=== PATIENT | male | born 1955 | race Caucasian/White ===

== ENCOUNTER 2017-08-18 17:36 | Inpatient (IN) | payer OTHER ==
[~2017-08-18] VITALS: Ht 193 cm; Wt 126.5 kg
[~2017-08-18 17:36] MED LIST: AMLO5TAB4 PO; BUPR1FIL SL; CLON-364 PO; DULO60CA7 PO; IBUP-1223 PO; PANT40TA5 PO; PREG100C PO; PREG25CA PO; RANI300T PO; SIMV20TA3 PO; TAMS-11 PO; TRAZ50TA18 PO
[2017-08-18] MEDS ORDERED: ONDANSETRON ODT 4 MG PO ONE (18:30)
[2017-08-18] MEDS ORDERED: SODIUM CHLORIDE FLUSH 10ML SYR IVF ONE (18:30)
[2017-08-18] MEDS ORDERED: KETOROLAC 30 MG/1 ML IVPush ONE (18:30)
[2017-08-18] MEDS ORDERED: MORPHINE SULFATE 4 MG/ML, 1ML IVPush PRN (18:30)
[2017-08-18] MEDS ORDERED: ONDANSETRON 2MG/ML, 2ML IVPush ONE (20:00)
[2017-08-18] MEDS ORDERED: DIAZEPAM 5 MG TABLET PO ONE (20:00)
[2017-08-18] MEDS ORDERED: HYDROmorphone 2 MG/ML, 1ML ONE ×3 (20:24→21:11)
[2017-08-18] MEDS ORDERED: ONDANSETRON 2MG/ML, 2ML ONE (20:24)
[2017-08-18] MEDS ORDERED: KETOROLAC 30 MG/1 ML ONE (20:24)
[2017-08-18] MEDS ORDERED: DIAZEPAM 5 MG TABLET ONE (20:24)
[2017-08-18] MEDS: HYDROmorphone 1 MG/ML, 1ML IVPush PRN ×2 (20:35→21:10)
[2017-08-19] MEDS ORDERED: IBUPROFEN 800 MG TABLET PO PRN (01:00)
[2017-08-19] MEDS ORDERED: HYDROmorphone 2 MG/ML, 1ML ONE ×3 (01:14→06:03)
[2017-08-19] MEDS: HYDROmorphone 1 MG/ML, 1ML IV PRN ×3 (01:23→06:06)
[2017-08-19] MEDS: LIDODERM 5% PATCH TD SCH (01:23)
[2017-08-19 02:00] VITALS: BP 113/69
[2017-08-19 07:18] VITALS: BP 111/67
[2017-08-19] MEDS: PANTOPROZOLE 40MG TABLET PO SCH (08:00)
[2017-08-19] MEDS: TAMSULOSIN 0.4 MG CAP.ER.24H PO SCH (08:00)
[2017-08-19] MEDS: DULOXETINE 30 MG CAPSULE.DR PO SCH (08:01)
[2017-08-19] MEDS: PREGABALIN 100 MG CAPSULE PO PRN ×2 (08:28→17:59)
[2017-08-19] MEDS: BUPRENORPHINE HCL SL SCH ×2 (09:00→21:00)
[2017-08-19] MEDS: [UNRECOGNIZED DRUG - OTHER] SL SCH ×2 (09:00→21:00)
[2017-08-19] MEDS: NALOXONE HCL SL SCH ×2 (09:00→21:00)
[2017-08-19] MEDS ORDERED: FAMOTIDINE 40 MG TABLET PO SCH (09:00)
[2017-08-19] MEDS: DEXAMETHASONE 4 MG/ML, 1ML IVPush SCH ×3 (10:34→21:41)
[2017-08-19 12:27] VITALS: BP 115/72
[2017-08-19 19:03] VITALS: BP 117/66
[2017-08-19] MEDS ORDERED: SIMVASTATIN 20 MG TABLET PO SCH (21:00)
[2017-08-19] MEDS ORDERED: TRAZODONE 50MG TABLET PO SCH (21:00)
[2017-08-20] MEDS: LIDODERM 5% PATCH TD SCH (01:00)
[2017-08-20 01:54] VITALS: BP 127/76
[2017-08-20 05:32] LABS: BASOPHILS # (AUTO) 0.01 x10^3/uL (0-0.1); BASOPHILS % (AUTO) 0 % (0-1); EOSINOPHILS % (AUTO) 0 % (1-7); LYMPHOCYTES # (AUTO) 0.72 x10^3/uL (1-3.4); LYMPHOCYTES % (AUTO) 17 % (22-44); MD NO; MEAN CORPUSCULAR HGB CONC 33.9 g/dL (33.2-36.2); MEAN CORPUSCULAR VOLUME 94.5 fL (81-97); MEAN PLATELET VOLUME 8.8 fL (7.4-10.4); MONOCYTES # (AUTO) 0.21 x10^3/uL (0.2-0.8); MONOCYTES % (AUTO) 5 % (2-9); NEUTROPHILS # (AUTO) 3.42 x10^3/uL (1.8-6.8); NEUTROPHILS % (AUTO) 78 % (42-75); PLATELET COUNT 267 x10^3/uL (130-400)
[2017-08-20 05:38] LABS: ANION GAP 9 mmol/L (5-15); CHLORIDE 111 mmol/L (98-107)
[2017-08-20 08:00] VITALS: BP 106/69
[2017-08-20] MEDS: NALOXONE HCL SL SCH (09:00)
[2017-08-20] MEDS: TAMSULOSIN 0.4 MG CAP.ER.24H PO SCH (09:00)
[2017-08-20] MEDS: [UNRECOGNIZED DRUG - OTHER] SL SCH (09:00)
[2017-08-20] MEDS: BUPRENORPHINE HCL SL SCH (09:00)
[2017-08-20] MEDS: PANTOPROZOLE 40MG TABLET PO SCH (10:21)
[2017-08-20] MEDS: DULOXETINE 30 MG CAPSULE.DR PO SCH (10:21)
[2017-08-20] MEDS: PREGABALIN 100 MG CAPSULE PO PRN (11:09)
[2017-08-20] MEDS ORDERED: METH4TAB2 PO ×2 (12:05→12:09)
[2017-08-20] MEDS ORDERED: FLU VACC QS2017-18 (36MOS+) UP/PF 0.5 ML IM-VACC ONE (13:00)
[2017-08-20] MEDS ORDERED: PNEUMOCOCCAL 23 VACCINE IM-VACC ONE (13:00)
== END 2017-08-20 14:00 | disposition home or self-care (01) | DRG 552 ==
LOC: ED 20:58 → EDIP 21:00 → 4WST 23:05
PROVIDERS: ADMIT Internal Medicine; ATTEND Internal Medicine
DX: M51.16 Intervertebral disc disorders with radiculopathy, lumbar region (principal); M48.54XA Collapsed vertebra, not elsewhere classified, thoracic region, initial encounter for fracture; E66.9 Obesity, unspecified; G89.29 Other chronic pain; I10 Essential (primary) hypertension; M48.061 Spinal stenosis, lumbar region without neurogenic claudication; Z68.33 Body mass index [BMI] 33.0-33.9, adult; Z88.8 Allergy status to other drugs, medicaments and biological substances; Z23 Encounter for immunization
CPT/HCPCS: 36415; 72110; 72131; 80048; 85025; 90686; 90732; 96374; 96375; 96376; J1100; J1170; J1885; J2405

== ENCOUNTER → 2017-11-10 | Outpatient (CLI) | payer OTHER ==
[~2017-11-10] MED LIST changes: +METH4TAB2 PO
== END | disposition home or self-care (01) ==
LOC: RAD 13:32
PROVIDERS: ATTEND Family Medicine
DX: M17.11 Unilateral primary osteoarthritis, right knee (principal)

== ENCOUNTER → 2018-01-17 | Outpatient (CLI) | payer OTHER | END | disposition home or self-care (01) | LOC: CFH 10:27 | PROVIDERS: ATTEND Family Medicine | DX: K76.0 Fatty (change of) liver, not elsewhere classified (principal) | CPT/HCPCS: 76700 ==

== ENCOUNTER 2018-02-28 15:06 | Emergency (ER) | payer OTHER ==
[~2018-02-28] VITALS: Ht 193 cm; Wt 125.0 kg
[2018-02-28] MEDS ORDERED: SODIUM CHLORIDE FLUSH 10ML SYR IVF ONE (15:30)
[2018-02-28] MEDS ORDERED: KETOROLAC 30 MG/1 ML IVPush ONE ×2 (15:30→20:00)
[2018-02-28 15:54] LABS: BASOPHILS # (AUTO) 0.04 x10^3/uL (0-0.1); BASOPHILS % (AUTO) 1 % (0-1); EOSINOPHILS # (AUTO) 0.18 x10^3/uL (0-0.4); EOSINOPHILS % (AUTO) 3 % (1-7); LYMPHOCYTES % (AUTO) 30 % (22-44); MD NO; MEAN CORPUSCULAR HEMOGLOBIN 31.9 pg (27.5-34.5); MEAN CORPUSCULAR HGB CONC 34.2 g/dL (33.2-36.2); MEAN CORPUSCULAR VOLUME 93.3 fL (81-97); MEAN PLATELET VOLUME 8.3 fL (7.4-10.4); MONOCYTES % (AUTO) 9 % (2-9); NEUTROPHILS # (AUTO) 4.03 x10^3/uL (1.8-6.8); NEUTROPHILS % (AUTO) 58 % (42-75); PLATELET COUNT 266 x10^3/uL (130-400); RED BLOOD COUNT 4.67 x10^6/uL (4.38-5.82)
[2018-02-28] MEDS ORDERED: HYDROmorphone 2 MG/ML, 1ML ONE ×3 (15:55→18:18)
[2018-02-28] MEDS ORDERED: KETOROLAC 30 MG/1 ML ONE (15:56)
[2018-02-28 15:59] LABS: ALANINE AMINOTRANSFERASE 37 U/L (12-78); ALBUMIN 4.2 g/dL (3.4-5.0); ANION GAP 10 mmol/L (5-15); CALCIUM 9.8 mg/dL (8.5-10.1); CHLORIDE 108 mmol/L (98-107); CREATININE 1.28 mg/dL (0.7-1.3)
[2018-02-28 16:01] LABS: ALKALINE PHOSPHATASE 94 U/L (45-117); BILIRUBIN,TOTAL 0.6 mg/dL (0.2-1.0); TOTAL PROTEIN 8.1 g/dL (6.4-8.2)
[2018-02-28] MEDS: HYDROmorphone 2 MG/ML, 1ML IVPush PRN ×2 (16:02→16:30)
[2018-02-28 16:15] LABS: MICROSCOPIC NOT IND
[2018-02-28 16:18] LABS: CULTURE INDICATED? NO
[2018-02-28 17:28] LABS: HCT (SEDRATE) 43.6 % (39.2-51.8)
[2018-02-28] MEDS ORDERED: OMNIPAQUE 350 MG/ML, 100ML BOTTLE ONE (17:54)
[2018-02-28] MEDS ORDERED: HYDROmorphone 1 MG/ML, 1ML IV ONE ×2 (19:00→20:00)
[2018-02-28 19:16] VITALS: BP 151/82
== END 2018-02-28 21:24 | disposition home or self-care (01) ==
LOC: ED 20:59
DX: M48.56XA Collapsed vertebra, not elsewhere classified, lumbar region, initial encounter for fracture (principal); M48.54XA Collapsed vertebra, not elsewhere classified, thoracic region, initial encounter for fracture; I10 Essential (primary) hypertension; G89.29 Other chronic pain; X58.XXXA Exposure to other specified factors, initial encounter; Y93.89 Activity, other specified; Y92.89 Other specified places as the place of occurrence of the external cause; Y99.8 Other external cause status
CPT/HCPCS: 36415; 72129; 72132; 80053; 81003; 83690; 85025; 85651; 86140; 96374; 96375; 96376; 99285; J1170; J1885; Q9967

== ENCOUNTER 2018-03-06 12:58 | Inpatient (IN) | payer OTHER ==
[~2018-03-06] VITALS: Ht 193 cm; Wt 144.3 kg
[~2018-03-06 12:58] MED LIST changes: -CLON-364 PO; +CLON0.5T11 PO; +TRAZ-136 PO; -TRAZ50TA18 PO
[2018-03-06] MEDS ORDERED: ACETAMINOPHEN 500 MG TABLET PO ONE (13:30)
[2018-03-06] MEDS ORDERED: ASPIRIN 81 MG TABLET CHEW PO ONE (13:30)
[2018-03-06] MEDS ORDERED: ASPIRIN 81 MG TABLET CHEW ONE (13:38)
[2018-03-06] MEDS ORDERED: ACETAMINOPHEN 500 MG TABLET ONE (13:38)
[2018-03-06 14:03] LABS: ALANINE AMINOTRANSFERASE 29 U/L (12-78); ANION GAP 7 mmol/L (5-15); CALCIUM 9.1 mg/dL (8.5-10.1); CHLORIDE 105 mmol/L (98-107); CREATININE 1.52 mg/dL (0.7-1.3)
[2018-03-06 14:07] LABS: ALKALINE PHOSPHATASE 87 U/L (45-117); BILIRUBIN,TOTAL 0.9 mg/dL (0.2-1.0); TOTAL PROTEIN 7.9 g/dL (6.4-8.2); TROPONIN I < 0.015 ng/mL (0.000-0.045)
[2018-03-06 14:08] LABS: INTERNATIONAL NORMALIZED RATIO 0.99 (0.93-1.1); PROTHROMBIN TIME 10.3 Seconds (9.6-11.5)
[2018-03-06 14:16] LABS: MEAN CORPUSCULAR HEMOGLOBIN 32.4 pg (27.5-34.5); MEAN CORPUSCULAR HGB CONC 34.8 g/dL (33.2-36.2); MEAN CORPUSCULAR VOLUME 93.2 fL (81-97); MEAN PLATELET VOLUME 7.9 fL (7.4-10.4); PLATELET COUNT 238 x10^3/uL (130-400); RED BLOOD COUNT 4.71 x10^6/uL (4.38-5.82); RED CELL DISTRIBUTION WIDTH 14.2 % (9.4-14.8)
[2018-03-06 14:19] LABS: BASOPHILS # (AUTO) 0.02 x10^3/uL (0-0.1); BASOPHILS % (AUTO) 0 % (0-1); EOSINOPHILS # (AUTO) 0.01 x10^3/uL (0-0.4); EOSINOPHILS % (AUTO) 0 % (1-7); LYMPHOCYTES # (AUTO) 0.38 x10^3/uL (1-3.4); LYMPHOCYTES % (AUTO) 4 % (22-44); MD SCAN; MONOCYTES % (AUTO) 3 % (2-9); NEUTROPHILS # (AUTO) 8.21 x10^3/uL (1.8-6.8); NEUTROPHILS % (AUTO) 92 % (42-75)
[2018-03-06] MEDS ORDERED: OMNIPAQUE 350 MG/ML, 150 ML BOTTLE ONE (14:36)
[2018-03-06] MEDS ORDERED: CEFTRIAXONE 1,000 MG in SODIUM CHLORIDE 0.9% 50 ML IVPB ONE (15:00)
[2018-03-06] MEDS ORDERED: AZITHROMYCIN 500 MG in SODIUM CHLORIDE 0.9% 250 ML IVPB ONE (15:00)
[2018-03-06] MEDS ORDERED: CEFTRIAXONE PMX 1GM/50ML 50 ML ONE (15:03)
[2018-03-06] MEDS ORDERED: SODIUM CHLORIDE 0.9% 1,000ML IVBOLUS ONE ×2 (15:30→16:00)
[2018-03-06] MEDS ORDERED: KETOROLAC 30 MG/1 ML ONE (15:55)
[2018-03-06] MEDS ORDERED: KETOROLAC 30 MG/1 ML IVPush ONE (16:00)
[2018-03-06] MEDS ORDERED: morphine IT (16:17)
[2018-03-06] MEDS ORDERED: CLON1000 IT (16:17)
[2018-03-06] MEDS ORDERED: GABA300C10 PO (16:17)
[2018-03-06] MEDS ORDERED: [UNRECOGNIZED DRUG - CODE] IT (16:17)
[2018-03-06] MEDS ORDERED: SODIUM CHLORIDE 0.9% 1,000 ML IV SCH (17:06)
[2018-03-06] MEDS ORDERED: ACETAMINOPHEN 325 MG TABLET PO PRN (17:30)
[2018-03-06] MEDS ORDERED: LABETALOL 5MG/ML, 20ML IVPush PRN (17:30)
[2018-03-06] MEDS ORDERED: IBUPROFEN 800 MG TABLET PO PRN (17:30)
[2018-03-06] MEDS ORDERED: CEFTRIAXONE 1,000 MG IM SCH (18:00)
[2018-03-06] MEDS: HEPARIN 5,000 UNITS/ML, 1ML SQ SCH (18:39)
[2018-03-06 18:40] VITALS: BP 115/79
[2018-03-06] MEDS: DOXYCYCLINE 100 MG in DEXTROSE 5% 250 ML IV SCH (18:42)
[2018-03-06 18:51] LABS: TROPONIN I < 0.015 ng/mL (0.000-0.045)
[2018-03-06 20:06] VITALS: BP 91/52
[2018-03-06] MEDS ORDERED: IBUPROFEN 600 MG TABLET ONE (21:25)
[2018-03-06] MEDS ORDERED: IBUPROFEN 200 MG TABLET ONE (21:25)
[2018-03-06] MEDS: SIMVASTATIN 20 MG TABLET PO SCH (21:42)
[2018-03-06] MEDS: GUAIFENESIN ER 600 MG TABLET PO SCH (21:42)
[2018-03-06 21:56] VITALS: BP 111/70
[2018-03-06 23:13] VITALS: BP 103/65
[2018-03-06] MEDS: TRAZODONE 100MG TABLET PO SCH (23:17)
[2018-03-06 23:38] LABS: TROPONIN I < 0.015 ng/mL (0.000-0.045)
[2018-03-07] VITALS (10 sets, daily range): BP systolic 99–159; BP diastolic 57–83
[2018-03-07] MEDS: HEPARIN 5,000 UNITS/ML, 1ML SQ SCH ×3 (05:15→20:59)
[2018-03-07] MEDS: DOXYCYCLINE 100 MG in DEXTROSE 5% 250 ML IV SCH ×2 (05:15→17:57)
[2018-03-07 05:21] LABS: BASOPHILS # (AUTO) 0.01 x10^3/uL (0-0.1); BASOPHILS % (AUTO) 0 % (0-1); EOSINOPHILS # (AUTO) 0.19 x10^3/uL (0-0.4); EOSINOPHILS % (AUTO) 2 % (1-7); LYMPHOCYTES # (AUTO) 1.65 x10^3/uL (1-3.4); LYMPHOCYTES % (AUTO) 14 % (22-44); MD NO; MEAN CORPUSCULAR HEMOGLOBIN 32.5 pg (27.5-34.5); MEAN CORPUSCULAR HGB CONC 34.4 g/dL (33.2-36.2); MEAN CORPUSCULAR VOLUME 94.4 fL (81-97); MEAN PLATELET VOLUME 7.9 fL (7.4-10.4); MONOCYTES # (AUTO) 0.63 x10^3/uL (0.2-0.8); MONOCYTES % (AUTO) 5 % (2-9); NEUTROPHILS # (AUTO) 9.47 x10^3/uL (1.8-6.8); NEUTROPHILS % (AUTO) 79 % (42-75); PLATELET COUNT 202 x10^3/uL (130-400); RED BLOOD COUNT 3.61 x10^6/uL (4.38-5.82); RED CELL DISTRIBUTION WIDTH 14.4 % (9.4-14.8)
[2018-03-07 05:25] LABS: ANION GAP 4 mmol/L (5-15); CALCIUM 7.8 mg/dL (8.5-10.1); CHLORIDE 111 mmol/L (98-107); CREATININE 0.98 mg/dL (0.7-1.3)
[2018-03-07] MEDS: GABAPENTIN 300 MG CAPSULE PO SCH ×3 (08:16→21:00)
[2018-03-07] MEDS: DULOXETINE 30 MG CAPSULE.DR PO SCH (08:16)
[2018-03-07] MEDS: GUAIFENESIN ER 600 MG TABLET PO SCH ×2 (08:16→20:59)
[2018-03-07] MEDS: FAMOTIDINE 40 MG TABLET PO SCH (08:17)
[2018-03-07] MEDS: TAMSULOSIN 0.4 MG CAP.ER.24H PO SCH (08:17)
[2018-03-07] MEDS: PANTOPROZOLE 40MG TABLET PO SCH (08:17)
[2018-03-07] MEDS ORDERED: SODIUM CHLORIDE 0.9% 1,000 ML IV SCH ×2 (12:30→17:06)
[2018-03-07 13:54] LABS: CLOSTRIDIUM DIFFICILE ANTIGEN NEGATIVE; CLOSTRIDIUM DIFFICILE TOXIN NEGATIVE (Negative)
[2018-03-07] MEDS ORDERED: CEFTRIAXONE 1,000 MG in SODIUM CHLORIDE 0.9% 50 ML IVPB SCH (15:30)
[2018-03-07] MEDS: CEFTRIAXONE 2 GM in SODIUM CHLORIDE 0.9% 50 ML IV SCH (16:14)
[2018-03-07] MEDS: SIMVASTATIN 20 MG TABLET PO SCH (20:59)
[2018-03-07] MEDS: TRAZODONE 100MG TABLET PO SCH (23:01)
[2018-03-08 03:23] VITALS: BP 165/89
[2018-03-08] MEDS: DOXYCYCLINE 100 MG in DEXTROSE 5% 250 ML IV SCH ×2 (05:50→17:12)
[2018-03-08] MEDS: HEPARIN 5,000 UNITS/ML, 1ML SQ SCH ×3 (05:50→20:44)
[2018-03-08 06:38] VITALS: BP 152/93
[2018-03-08 08:59] LABS: BASOPHILS # (AUTO) 0.01 x10^3/uL (0-0.1); BASOPHILS % (AUTO) 0 % (0-1); EOSINOPHILS # (AUTO) 0.17 x10^3/uL (0-0.4); EOSINOPHILS % (AUTO) 2 % (1-7); LYMPHOCYTES # (AUTO) 1.67 x10^3/uL (1-3.4); LYMPHOCYTES % (AUTO) 20 % (22-44); MD NO; MEAN CORPUSCULAR HEMOGLOBIN 31.5 pg (27.5-34.5); MEAN CORPUSCULAR HGB CONC 33.9 g/dL (33.2-36.2); MEAN CORPUSCULAR VOLUME 92.8 fL (81-97); MEAN PLATELET VOLUME 7.5 fL (7.4-10.4); MONOCYTES # (AUTO) 0.36 x10^3/uL (0.2-0.8); MONOCYTES % (AUTO) 4 % (2-9); NEUTROPHILS # (AUTO) 6.35 x10^3/uL (1.8-6.8); NEUTROPHILS % (AUTO) 74 % (42-75); PLATELET COUNT 249 x10^3/uL (130-400); RED CELL DISTRIBUTION WIDTH 14.4 % (9.4-14.8)
[2018-03-08] MEDS ORDERED: FUROSEMIDE 20 MG/2 ML IV ONE (09:00)
[2018-03-08 09:05] LABS: ANION GAP 9 mmol/L (5-15); CALCIUM 8.7 mg/dL (8.5-10.1); CHLORIDE 110 mmol/L (98-107); CREATININE 1.07 mg/dL (0.7-1.3)
[2018-03-08] MEDS: DULOXETINE 30 MG CAPSULE.DR PO SCH (09:33)
[2018-03-08] MEDS: TAMSULOSIN 0.4 MG CAP.ER.24H PO SCH (09:34)
[2018-03-08] MEDS: GUAIFENESIN ER 600 MG TABLET PO SCH ×2 (09:35→20:43)
[2018-03-08] MEDS: GABAPENTIN 300 MG CAPSULE PO SCH ×3 (09:36→20:43)
[2018-03-08] MEDS: FAMOTIDINE 40 MG TABLET PO SCH (09:37)
[2018-03-08] MEDS: PANTOPROZOLE 40MG TABLET PO SCH (09:37)
[2018-03-08 12:20] VITALS: BP 147/94
[2018-03-08] MEDS ORDERED: SODIUM CHLORIDE 0.9% 1,000 ML IV SCH (12:30)
[2018-03-08] MEDS: CEFTRIAXONE 2 GM in SODIUM CHLORIDE 0.9% 50 ML IV SCH (14:29)
[2018-03-08 19:54] VITALS: BP 124/83
[2018-03-08] MEDS: SIMVASTATIN 20 MG TABLET PO SCH (20:43)
[2018-03-08] MEDS: TRAZODONE 100MG TABLET PO SCH (23:56)
[2018-03-09 04:03] VITALS: BP 153/84
[2018-03-09] MEDS: HEPARIN 5,000 UNITS/ML, 1ML SQ SCH (05:03)
[2018-03-09] MEDS: DOXYCYCLINE 100 MG in DEXTROSE 5% 250 ML IV SCH (05:03)
[2018-03-09] MEDS ORDERED: IBUPROFEN 600 MG TABLET ONE (09:13)
[2018-03-09] MEDS ORDERED: IBUPROFEN 200 MG TABLET ONE (09:14)
[2018-03-09] MEDS: GUAIFENESIN ER 600 MG TABLET PO SCH (09:18)
[2018-03-09] MEDS: GABAPENTIN 300 MG CAPSULE PO SCH (09:20)
[2018-03-09] MEDS: FAMOTIDINE 40 MG TABLET PO SCH (09:21)
[2018-03-09] MEDS: PANTOPROZOLE 40MG TABLET PO SCH (09:21)
[2018-03-09] MEDS: TAMSULOSIN 0.4 MG CAP.ER.24H PO SCH (09:22)
[2018-03-09] MEDS: DULOXETINE 30 MG CAPSULE.DR PO SCH (09:23)
[2018-03-09] MEDS ORDERED: DOXY100C PO (11:37)
[2018-03-09] MEDS ORDERED: CEFD300C37 PO (11:37)
[2018-03-09] MEDS ORDERED: GUAI600T80 PO (11:37)
[2018-03-09 12:31] VITALS: BP 154/87
== END 2018-03-09 13:10 | disposition home or self-care (01) | DRG 871 ==
LOC: ED 16:33 → EDIP 16:34 → ED 16:53 → 4WST 18:09 → DCLOUNGE 03-09 13:00
PROVIDERS: ADMIT Internal Medicine; ATTEND Internal Medicine
DX: A41.9 Sepsis, unspecified organism (principal); J15.9 Unspecified bacterial pneumonia; N17.0 Acute kidney failure with tubular necrosis; R65.21 Severe sepsis with septic shock; E87.2 Acidosis; G89.29 Other chronic pain; E87.6 Hypokalemia; R09.02 Hypoxemia; Z79.82 Long term (current) use of aspirin; R73.9 Hyperglycemia, unspecified; Z88.6 Allergy status to analgesic agent; I50.9 Heart failure, unspecified
CPT/HCPCS: 36415; 71045; 71275; 80048; 80053; 83605; 83880; 84145; 84484; 85025; 85610; 85730; 87040; 87070; 87205; 87324; 93005; 96365; 96367; 99291; J0456; J0696; J1644; J1885; J7060; Q9967; J1940; J7030; J7050

== ENCOUNTER → 2018-05-23 | Outpatient (CLI) | payer OTHER ==
[~2018-05-23] MED LIST changes: +CEFD300C37 PO; +CLON1000 IT; +DOXY100C PO; +GABA300C10 PO; +GUAI600T80 PO; +OMNIPAQUE 350 MG/ML, 75ML BOTTLE ONE; +[UNRECOGNIZED DRUG - CODE] IT; +morphine IT
== END | disposition home or self-care (01) ==
LOC: CFH 13:46
PROVIDERS: ATTEND Family Medicine
DX: N20.0 Calculus of kidney (principal)
CPT/HCPCS: 71260; 82565; Q9967

== ENCOUNTER 2019-05-30 05:12 | Day surgery (SDC) | payer MEDICARE, OTHER ==
[~2019-05-30] VITALS: Ht 193 cm; Wt 135.7 kg
[~2019-05-30 05:12] MED LIST changes: +LOSA100T14 PO; -OMNIPAQUE 350 MG/ML, 75ML BOTTLE ONE; +Pain Pump; -TRAZ-136 PO; +TRAZ50TA66 PO; +potassium PO
[2019-05-30] MEDS ORDERED: LACTATED RINGERS 1,000 ML IV SCH (05:48)
[2019-05-30 05:51] VITALS: BP 103/74
[2019-05-30] MEDS ORDERED: BUPIVACAINE/PF 0.5% ONE (06:21)
[2019-05-30] MEDS ORDERED: PROMETHAZINE 25 MG/ML, 1ML IM PRN (06:30)
[2019-05-30] MEDS ORDERED: HYDROcodone/APAP 5/325 TABLET PO PRN (06:30)
[2019-05-30] MEDS ORDERED: HYDROmorphone 1 MG/ML, 1ML INJ IM PRN (06:30)
[2019-05-30] MEDS ORDERED: ACETAMINOPHEN 325 MG TABLET PO PRN ×2 (06:30→07:00)
[2019-05-30] MEDS ORDERED: ONDANSETRON 2MG/ML, 2ML IVPush PRN (06:30)
[2019-05-30] MEDS ORDERED: KETOROLAC 30 MG/1 ML IVPush SCH (06:30)
[2019-05-30] MEDS ORDERED: FENTANYL PF 250 MCG/5ML ONE (06:31)
[2019-05-30] MEDS ORDERED: CEFAZOLIN 1,000 MG ONE (06:58)
[2019-05-30] MEDS ORDERED: DEXAMETHASONE 4 MG/ML, 1ML ONE (06:58)
[2019-05-30] MEDS ORDERED: LIDOCAINE-MPF 2% ,5ML ONE ×2 (06:58)
[2019-05-30] MEDS ORDERED: ONDANSETRON 2MG/ML, 2ML ONE (06:58)
[2019-05-30] MEDS ORDERED: PROPOFOL 10 MG/ML, 20ML ONE (06:58)
[2019-05-30] MEDS ORDERED: OXYcodone 5 MG/5 ML ORAL.SOL UDC PO PRN (07:00)
[2019-05-30] MEDS ORDERED: ONDANSETRON 2MG/ML, 2ML IV PRN (07:00)
[2019-05-30] MEDS ORDERED: LORazepam 2 MG/ML, 1ML IVPush PRN (07:00)
[2019-05-30] MEDS ORDERED: ONDANSETRON ODT 8 MG PO PRN (07:00)
[2019-05-30] MEDS ORDERED: MEPERIDINE/PF 25MG/ML,1ML IVPush PRN (07:00)
[2019-05-30] MEDS ORDERED: HYDROmorphone 2 MG/ML, 1ML IVPush PRN (07:00)
[2019-05-30] MEDS ORDERED: PROMETHAZINE 25 MG/ML, 1ML IV PRN (07:00)
[2019-05-30] MEDS ORDERED: KETOROLAC 30 MG/1 ML ONE (07:31)
[2019-05-30] MEDS ORDERED: FENTANYL PF 100 MCG/2ML ONE (07:39)
[2019-05-30] MEDS: FENTANYL PF 100 MCG/2ML IV PRN ×4 (07:41→08:03)
[2019-05-30] MEDS ORDERED: ACETAMINOPHEN 650 MG/20.3 ML UDC ONE (07:53)
== END 2019-05-30 09:20 | disposition home or self-care (01) ==
LOC: OUT 05:12 → UNDOADMOB 06:18 → ORIP 06:18
PROVIDERS: ATTEND Orthopaedic Surgery
DX: M25.562 Pain in left knee (principal); M23.332 Other meniscus derangements, other medial meniscus, left knee; M23.362 Other meniscus derangements, other lateral meniscus, left knee; M65.862 Other synovitis and tenosynovitis, left lower leg; Z72.89 Other problems related to lifestyle; Z79.1 Long term (current) use of non-steroidal anti-inflammatories (NSAID); Z79.899 Other long term (current) drug therapy; Z88.6 Allergy status to analgesic agent; Z90.49 Acquired absence of other specified parts of digestive tract; Z98.890 Other specified postprocedural states; Z82.49 Family history of ischemic heart disease and other diseases of the circulatory system
CPT/HCPCS: 29880; J0690; J1100; J1885; J2405; J2704; J3010; J7120

== ENCOUNTER 2019-08-20 05:51 | Inpatient (IN) | payer MEDICARE, OTHER ==
[~2019-08-20] VITALS: Ht 193 cm; Wt 134.6 kg
[~2019-08-20 05:51] MED LIST changes: +CLON-364 PO; -CLON0.5T11 PO; +SIMV20TA19 PO; -SIMV20TA3 PO
--- NOTE | 2019-08-20 06:08 | NUR ---
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
--- NOTE | 2019-08-20 06:13 | NUR ---
RN to bedside after patient assessed by provider. Patient already placed on monitor. Heart rate elevated, but regular. RN did not see patient transfer or mobility into [facility]. Patient resting in place, answers questions clearly and concisely. Agitated when asked about his home oxygen status. Skin is warm, pink and dry. Awaiting
[2019-08-20] MEDS ORDERED: ASPIRIN 81 MG TABLET CHEW ONE (06:22)
[2019-08-20] MEDS ORDERED: DILTIAZEM 5 MG/ML, 5ML ONE (06:23)
[2019-08-20] MEDS ORDERED: DILTIAZEM 5 MG/ML, 5ML IV ONE (06:30)
[2019-08-20] MEDS ORDERED: ASPIRIN 81 MG TABLET CHEW PO ONE (06:30)
[2019-08-20] MEDS ORDERED: SODIUM CHLORIDE FLUSH 10ML SYR IVF ONE (06:30)
[2019-08-20 06:38] LABS: BASOPHILS # (AUTO) 0.08 x10^3/uL (0-0.1); BASOPHILS % (AUTO) 1 % (0-1); EOSINOPHILS # (AUTO) 0.13 x10^3/uL (0-0.4); EOSINOPHILS % (AUTO) 2 % (1-7); LYMPHOCYTES # (AUTO) 0.86 x10^3/uL (1-3.4); LYMPHOCYTES % (AUTO) 13 % (22-44); MD NO; MEAN CORPUSCULAR HEMOGLOBIN 30.4 pg (27.5-34.5); MEAN CORPUSCULAR HGB CONC 33.1 g/dL (33.2-36.2); MEAN CORPUSCULAR VOLUME 91.8 fL (81-97); MEAN PLATELET VOLUME 7.9 fL (7.4-10.4); MONOCYTES # (AUTO) 0.28 x10^3/uL (0.2-0.8); MONOCYTES % (AUTO) 4 % (2-9); NEUTROPHILS % (AUTO) 79 % (42-75); PLATELET COUNT 261 x10^3/uL (130-400); RED BLOOD COUNT 4.62 x10^6/uL (4.38-5.82); RED CELL DISTRIBUTION WIDTH 14.5 % (9.4-14.8)
[2019-08-20 06:48] LABS: ALANINE AMINOTRANSFERASE 34 U/L (12-78); ALBUMIN 3.6 g/dL (3.4-5.0); ANION GAP 6 mmol/L (5-15); CALCIUM 9.1 mg/dL (8.5-10.1); CHLORIDE 108 mmol/L (98-107); CREATININE 1.92 mg/dL (0.7-1.3)
[2019-08-20 06:53] LABS: ALKALINE PHOSPHATASE 100 U/L (45-117); BILIRUBIN,TOTAL 0.5 mg/dL (0.2-1.0); T4 (THYROXINE) 9.8 mcg/dL (4.5-12.1); TOTAL PROTEIN 7.5 g/dL (6.4-8.2); TROPONIN I < 0.015 ng/mL (0.000-0.045)
--- NOTE | 2019-08-20 06:57 | NUR ---
BEDSIDE REPORT RECEIVED FROM BRADLEY HALLMAN. CARE ASSUMED. PT ON GURBRODY, 4L NC, PIV ESTABLISHED BY DELFINO RN AND MEDICATED PER ORDERS.
--- NOTE | 2019-08-20 07:16 | NUR ---
ALL RESULTS BACK AT THIS TIME, CHART UP FOR RECHECK.
[2019-08-20] MEDS ORDERED: AZITHROMYCIN 500 MG in SODIUM CHLORIDE 0.9% 250 ML IVPB ONE (07:30)
[2019-08-20] MEDS ORDERED: CEFTRIAXONE PMX 1GM/50ML 50 ML IVPB ONE (07:30)
[2019-08-20] MEDS ORDERED: SODIUM CHLORIDE 0.9% 1,000ML IVBOLUS ONE ×5 (08:00→17:30)
[2019-08-20] MEDS ORDERED: SODIUM CHLORIDE FLUSH 10ML SYR IVF PRN (08:00)
[2019-08-20] MEDS ORDERED: ACETAMINOPHEN 500 MG TABLET PO ONE (08:00)
[2019-08-20] MEDS ORDERED: ACETAMINOPHEN 500 MG TABLET ONE (08:07)
[2019-08-20] MEDS ORDERED: CEFTRIAXONE PMX 1GM/50ML 50 ML ONE (08:10)
--- NOTE | 2019-08-20 08:14 | NUR ---
PT MEDICATED PER ORDERS, REPEAT EKG COMPLETED.
--- NOTE | 2019-08-20 08:44 | NUR ---
[facility] AT BEDSIDE.
[2019-08-20] MEDS: SODIUM CHLORIDE 0.9% 1,000 ML IV SCH ×2 (08:48→10:00)
--- NOTE | 2019-08-20 08:54 | NUR ---
BEDSIDE REPORT GIVEN TO BRADLEY VEGA. CARE TRANSFERRED AT THIS TIME.
[2019-08-20] MEDS ORDERED: TEMPLATE NON-FORMULARY MED. (Ranitidine Hcl** 300 MG) PO SCH (09:00)
[2019-08-20] MEDS: LACTOBACILLUS CHEW TABLET PO SCH ×3 (09:00→21:44)
[2019-08-20] MEDS ORDERED: ONDANSETRON ODT 4 MG PO PRN (09:00)
[2019-08-20] MEDS: GABAPENTIN 300 MG CAPSULE PO SCH ×3 (09:00→21:45)
[2019-08-20] MEDS ORDERED: IBUPROFEN 800 MG TABLET PO PRN (09:00)
[2019-08-20] MEDS ORDERED: TAMSULOSIN 0.4 MG CAP.ER.24H PO SCH (09:00)
[2019-08-20] MEDS ORDERED: ONDANSETRON 2MG/ML, 2ML IVPush PRN (09:00)
[2019-08-20] MEDS: HEPARIN 5,000 UNITS/ML, 1ML SQ SCH ×2 (09:00→17:31)
[2019-08-20] MEDS ORDERED: CEFTRIAXONE PMX 2GM/50ML 50 ML IV SCH (09:00)
--- NOTE | 2019-08-20 09:00 | NUR ---
late entry d/t patient care: hospitalist Drake SCOTT notified of elevated d dimer, hospitalist declines to order CTA to rule out PE at this time, states he believes d dimer is elevated d/t other cause.
[2019-08-20] MEDS ORDERED: potassium PO ×2 (09:17→09:18)
[2019-08-20] MEDS ORDERED: albuterol inhaler INH (09:21)
[2019-08-20] MEDS ORDERED: albuterol neb INH (09:21)
[2019-08-20] MEDS ORDERED: STERIOD PO (09:21)
--- NOTE | 2019-08-20 09:30 | NUR ---
med rec completed, hospitalist notified of need to review changes.
--- NOTE | 2019-08-20 10:02 | NUR ---
MD Juan notified pt's bp trending down and oxygen req increasing, now req 5L/min via NC, currently 91/58. pt is sinus tach rate 90s-100s with no ectopy. pt denies pain. pt is drowsy, oriented x 4 however has intermittent moments of disorientation. pt demonstrates no focal weakness, bilateral pupils equal, round and reactive. per , pt has been disoriented intermittently since yesterday. MD Juan informed. instructed RN to run second liter NS ordered (in progress) and apply blanca piper.
--- NOTE | 2019-08-20 10:09 | NUR ---
blanca piper ordered from central supply, pressure bag applied to IVF, second liter ns is infusing rapidly. pt a&ox4, resps even, shallow. resp effort unchanged. pt satting >90% on 5L NC.
--- NOTE | 2019-08-20 10:31 | NUR ---
second liter bolus completed. hospitalist Drake paged regarding repeat bp 85/58 after second liter bolus. no answer, message left with callback number.
--- NOTE | 2019-08-20 10:38 | NUR ---
MD KAY NOTIFIED BP 85/50 S/P 2L TOTAL BOLUS. NOTIFIED PT MEETING CRITERIA FOR SEVERE SEPSIS AND REQ APPROX 700 ADDITIONAL MLS TO MEET WEIGHT BASED BOLUS FOR SEPSIS. ORDERED RN TO BOLUS ADDITIONAL 1 L NS FOR TOTAL OF 3 L. 3RD LITER INFUSING RAPIDLY AT THIS TIME. ABG RESULTS AND OXYGEN REQ/RESP EFFORT REVIEWED WITH .
--- NOTE | 2019-08-20 11:11 | NUR ---
REPORT CALLED TO RECEIVING RN MUNIR.
--- NOTE | 2019-08-20 11:20 | NUR ---
MD DSOUZA INFORMED OF MOST RECENT BP AND TREND. ORDERED RN TO ADMIN ADDITIONAL LITER NS TO TOTAL 4L FOR 30ML/KG BOLUS. 4TH LITER NS RUNNING RAPIDLY AT THIS TIME, PT SLEEPING, RESPS EVEN AND UNLABORED, PT AWAKENS TO VOICE. PT TO GO TO [facility] ONCE TRANSPORT AVAILABLE.
[2019-08-20] MEDS: DULOXETINE 30 MG CAPSULE.DR PO SCH (12:31)
[2019-08-20] MEDS ORDERED: LOSARTAN 50MG TABLET PO SCH (12:32)
[2019-08-20 12:35] VITALS: BP 94/62
[2019-08-20] MEDS: FAMOTIDINE 40 MG TABLET PO SCH (13:09)
[2019-08-20] MEDS ORDERED: CEFTRIAXONE PMX 1GM/50ML 50 ML IV ONE (13:30)
[2019-08-20 13:36] VITALS: BP 94/62
[2019-08-20 14:05] LABS: RAPID INFLUENZA A Negative (Negative); RAPID INFLUENZA B Negative (Negative)
[2019-08-20] MEDS: ALBUTEROL SULFATE 2.5 MG/3 ML NPPB SCH ×2 (14:41→22:08)
[2019-08-20] MEDS: PANTOPRAZOLE 40MG TABLET PO SCH (17:31)
[2019-08-20 17:32] VITALS: BP 82/45
[2019-08-20] MEDS: CARVEDILOL 3.125 MG TABLET PO SCH (17:32)
[2019-08-20] MEDS ORDERED: ALBUTEROL SULFATE 2.5 MG/3 ML NPPB PRN (18:00)
[2019-08-20 18:18] VITALS: BP 95/58
[2019-08-20 18:38] VITALS: BP 97/59
[2019-08-20] MEDS: TRAZODONE 100MG TABLET PO SCH (21:45)
[2019-08-20] MEDS: POTASSIUM CHLORIDE 10 MEQ TABLET.ER PO SCH (21:45)
[2019-08-21] MEDS: HEPARIN 5,000 UNITS/ML, 1ML SQ SCH ×3 (01:15→18:00)
[2019-08-21 02:00] VITALS: BP 100/62
[2019-08-21 05:41] LABS: BASOPHILS # (AUTO) 0.03 x10^3/uL (0-0.1); BASOPHILS % (AUTO) 0 % (0-1); EOSINOPHILS # (AUTO) 0.23 x10^3/uL (0-0.4); EOSINOPHILS % (AUTO) 3 % (1-7); LYMPHOCYTES % (AUTO) 23 % (22-44); MD NO; MEAN CORPUSCULAR HGB CONC 33.2 g/dL (33.2-36.2); MEAN CORPUSCULAR VOLUME 93.3 fL (81-97); MEAN PLATELET VOLUME 8.3 fL (7.4-10.4); MONOCYTES # (AUTO) 0.48 x10^3/uL (0.2-0.8); MONOCYTES % (AUTO) 7 % (2-9); NEUTROPHILS # (AUTO) 4.97 x10^3/uL (1.8-6.8); NEUTROPHILS % (AUTO) 67 % (42-75); PLATELET COUNT 200 x10^3/uL (130-400); RED BLOOD COUNT 3.51 x10^6/uL (4.38-5.82); RED CELL DISTRIBUTION WIDTH 15.2 % (9.4-14.8)
[2019-08-21 05:46] LABS: ANION GAP 3 mmol/L (5-15); CALCIUM 8.5 mg/dL (8.5-10.1); CHLORIDE 112 mmol/L (98-107); CREATININE 1.11 mg/dL (0.7-1.3)
[2019-08-21 06:32] VITALS: BP 109/73
[2019-08-21] MEDS: CARVEDILOL 3.125 MG TABLET PO SCH (06:32)
[2019-08-21] MEDS: ALBUTEROL SULFATE 2.5 MG/3 ML NPPB SCH ×3 (07:00→21:00)
[2019-08-21 08:15] VITALS: BP 114/67
[2019-08-21] MEDS: FAMOTIDINE 40 MG TABLET PO SCH (08:33)
[2019-08-21] MEDS: LACTOBACILLUS CHEW TABLET PO SCH ×3 (08:33→20:09)
[2019-08-21] MEDS: DULOXETINE 30 MG CAPSULE.DR PO SCH (08:33)
[2019-08-21] MEDS: PANTOPRAZOLE 40MG TABLET PO SCH ×2 (08:33→18:00)
[2019-08-21] MEDS: GABAPENTIN 300 MG CAPSULE PO SCH ×3 (08:33→20:09)
[2019-08-21] MEDS: POTASSIUM CHLORIDE 10 MEQ TABLET.ER PO SCH ×2 (08:33→20:09)
[2019-08-21] MEDS: SODIUM CHLORIDE 0.9% 1,000 ML IV SCH (08:34)
[2019-08-21] MEDS: CEFTRIAXONE PMX 2GM/50ML 50 ML IVPB SCH (12:00)
[2019-08-21 13:59] VITALS: BP 101/63
[2019-08-21] MEDS ORDERED: OMNIPAQUE 350 MG/ML, 100ML BOTTLE ONE (15:54)
[2019-08-21] MEDS ORDERED: AZITHROMYCIN 500 MG in SODIUM CHLORIDE 0.9% 250 ML IV ONE (16:00)
[2019-08-21 19:07] VITALS: BP 122/76
[2019-08-21] MEDS: GUAIFENESIN/DM 200-20MG, 10ML UDC PO PRN (20:08)
[2019-08-21] MEDS: TRAZODONE 100MG TABLET PO SCH (20:09)
[2019-08-21 23:26] LABS: CLOSTRIDIUM DIFFICILE ANTIGEN NEGATIVE; CLOSTRIDIUM DIFFICILE TOXIN NEGATIVE (Negative)
[2019-08-22] MEDS: HEPARIN 5,000 UNITS/ML, 1ML SQ SCH ×3 (01:48→17:37)
[2019-08-22 01:53] VITALS: BP 164/97
[2019-08-22 05:41] LABS: BASOPHILS # (AUTO) 0.03 x10^3/uL (0-0.1); BASOPHILS % (AUTO) 0 % (0-1); EOSINOPHILS # (AUTO) 0.27 x10^3/uL (0-0.4); EOSINOPHILS % (AUTO) 5 % (1-7); LYMPHOCYTES # (AUTO) 1.11 x10^3/uL (1-3.4); LYMPHOCYTES % (AUTO) 18 % (22-44); MD NO; MEAN CORPUSCULAR HEMOGLOBIN 30.4 pg (27.5-34.5); MEAN CORPUSCULAR HGB CONC 32.5 g/dL (33.2-36.2); MEAN CORPUSCULAR VOLUME 93.6 fL (81-97); MEAN PLATELET VOLUME 8.2 fL (7.4-10.4); MONOCYTES # (AUTO) 0.53 x10^3/uL (0.2-0.8); MONOCYTES % (AUTO) 9 % (2-9); NEUTROPHILS % (AUTO) 68 % (42-75); PLATELET COUNT 224 x10^3/uL (130-400); RED BLOOD COUNT 3.71 x10^6/uL (4.38-5.82); RED CELL DISTRIBUTION WIDTH 14.6 % (9.4-14.8)
[2019-08-22 05:53] LABS: ALBUMIN 2.9 g/dL (3.4-5.0); ANION GAP 4 mmol/L (5-15); CALCIUM 8.9 mg/dL (8.5-10.1); CHLORIDE 110 mmol/L (98-107)
[2019-08-22 05:55] LABS: CREATININE 1.09 mg/dL (0.7-1.3)
[2019-08-22] MEDS: GUAIFENESIN/DM 200-20MG, 10ML UDC PO PRN (06:20)
[2019-08-22] MEDS: ALBUTEROL SULFATE 2.5 MG/3 ML NPPB SCH ×3 (07:00→19:20)
[2019-08-22 07:44] VITALS: BP 111/68
[2019-08-22] MEDS: PANTOPRAZOLE 40MG TABLET PO SCH ×2 (08:46→15:26)
[2019-08-22] MEDS: GABAPENTIN 300 MG CAPSULE PO SCH ×3 (08:46→20:54)
[2019-08-22] MEDS: POTASSIUM CHLORIDE 10 MEQ TABLET.ER PO SCH ×2 (08:46→20:54)
[2019-08-22] MEDS: LACTOBACILLUS CHEW TABLET PO SCH ×3 (08:46→20:47)
[2019-08-22] MEDS: DULOXETINE 30 MG CAPSULE.DR PO SCH (08:47)
[2019-08-22] MEDS ORDERED: FAMOTIDINE 20 MG TABLET PO SCH (09:00)
[2019-08-22] MEDS: SODIUM CHLORIDE 0.9% 1,000 ML IV SCH (10:10)
[2019-08-22] MEDS: CEFTRIAXONE PMX 2GM/50ML 50 ML IVPB SCH (12:28)
[2019-08-22 12:35] VITALS: BP 142/82
[2019-08-22 19:24] VITALS: BP 115/74
[2019-08-22] MEDS: ACETAMINOPHEN 325 MG TABLET PO PRN (20:54)
[2019-08-22] MEDS: TRAZODONE 100MG TABLET PO SCH (20:55)
[2019-08-23 00:24] VITALS: BP 123/64
[2019-08-23] MEDS: HEPARIN 5,000 UNITS/ML, 1ML SQ SCH ×3 (03:48→16:45)
[2019-08-23] MEDS: ACETAMINOPHEN 325 MG TABLET PO PRN (03:48)
[2019-08-23] MEDS: SODIUM CHLORIDE 0.9% 1,000 ML IV SCH (03:48)
[2019-08-23 07:39] VITALS: BP 138/90
[2019-08-23] MEDS: ALBUTEROL SULFATE 2.5 MG/3 ML NPPB SCH (09:00)
[2019-08-23] MEDS: DULOXETINE 30 MG CAPSULE.DR PO SCH (09:10)
[2019-08-23] MEDS: POTASSIUM CHLORIDE 10 MEQ TABLET.ER PO SCH (09:10)
[2019-08-23] MEDS: LACTOBACILLUS CHEW TABLET PO SCH ×2 (09:10→16:45)
[2019-08-23] MEDS: PANTOPRAZOLE 40MG TABLET PO SCH ×2 (09:10→16:45)
[2019-08-23] MEDS: GABAPENTIN 300 MG CAPSULE PO SCH ×2 (09:10→16:45)
[2019-08-23] MEDS: CEFTRIAXONE PMX 2GM/50ML 50 ML IVPB SCH (11:41)
[2019-08-23] MEDS ORDERED: TAMSULOSIN 0.4 MG CAP.ER.24H PO SCH (13:00)
[2019-08-23 13:12] VITALS: BP 130/86
[2019-08-23] MEDS ORDERED: ACID1TAB7 PO (16:01)
[2019-08-23] MEDS ORDERED: DOXY100C2 PO (16:01)
[2019-08-23] MEDS ORDERED: GUAI5SYR PO (16:01)
[2019-08-23] MEDS ORDERED: AMOX-291 PO (16:02)
== END 2019-08-23 18:12 | disposition home or self-care (01) | DRG 871 ==
LOC: ED 06:34 → EDIP 08:09 → 4EST 12:05
PROVIDERS: ADMIT Internal Medicine; ATTEND Internal Medicine
DX: A41.9 Sepsis, unspecified organism (principal); J18.1 Lobar pneumonia, unspecified organism; J96.01 Acute respiratory failure with hypoxia; N17.9 Acute kidney failure, unspecified; Z88.8 Allergy status to other drugs, medicaments and biological substances; E66.9 Obesity, unspecified; Z68.36 Body mass index [BMI] 36.0-36.9, adult; G47.00 Insomnia, unspecified; G89.29 Other chronic pain; I10 Essential (primary) hypertension; J45.909 Unspecified asthma, uncomplicated; M17.0 Bilateral primary osteoarthritis of knee; R65.20 Severe sepsis without septic shock; Z82.49 Family history of ischemic heart disease and other diseases of the circulatory system; Z83.3 Family history of diabetes mellitus; Z99.81 Dependence on supplemental oxygen
CPT/HCPCS: 36415; 36600; 71045; 71260; 80048; 80053; 80069; 82803; 83605; 83735; 83880; 84145; 84436; 84443; 84484; 85025; 85379; 87040; 87324; 87400; 93005; 94640; 99291; G0378; J0456; J0696; J1644; J7613; Q9967; J7030; J7050

== ENCOUNTER 2019-12-05 18:39 | Emergency (ER) | payer MEDICARE, OTHER ==
[~2019-12-05] VITALS: Ht 193 cm; Wt 133.0 kg
[~2019-12-05 18:39] MED LIST changes: +ACID1TAB7 PO; +AMOX-291 PO; +DOXY100C2 PO; +GUAI5SYR PO; +STERIOD PO; +albuterol inhaler INH; +albuterol neb INH
--- NOTE | 2019-12-05 18:57 | NUR ---
PT SITTING IN BED, VSS, CALL LIGHT WITHIN REACH. REPORT GIVEN TO BRADLEY TENORIO.
--- NOTE | 2019-12-05 19:00 | NUR ---
Report received from BRADLEY Tom. This RN to assume care. Patient states he still has 9/10 pain.
[2019-12-05 20:00] VITALS: BP 141/78
[2019-12-05] MEDS ORDERED: ASPIRIN 81 MG TABLET CHEW PO ONE (20:00)
[2019-12-05 20:20] LABS: BASOPHILS # (AUTO) 0.04 x10^3/uL (0-0.1); BASOPHILS % (AUTO) 1 % (0-1); EOSINOPHILS # (AUTO) 0.27 x10^3/uL (0-0.4); EOSINOPHILS % (AUTO) 5 % (1-7); LYMPHOCYTES # (AUTO) 1.42 x10^3/uL (1-3.4); LYMPHOCYTES % (AUTO) 25 % (22-44); MD NO; MEAN CORPUSCULAR HGB CONC 33.8 g/dL (33.2-36.2); MEAN CORPUSCULAR VOLUME 91.8 fL (81-97); MONOCYTES # (AUTO) 0.54 x10^3/uL (0.2-0.8); MONOCYTES % (AUTO) 10 % (2-9); NEUTROPHILS # (AUTO) 3.38 x10^3/uL (1.8-6.8); NEUTROPHILS % (AUTO) 60 % (42-75); PLATELET COUNT 241 x10^3/uL (130-400); RED BLOOD COUNT 3.88 x10^6/uL (4.38-5.82); RED CELL DISTRIBUTION WIDTH 14.9 % (9.4-14.8)
[2019-12-05 20:32] LABS: ALBUMIN 3.5 g/dL (3.4-5.0); ANION GAP 4 mmol/L (5-15); CALCIUM 9.4 mg/dL (8.5-10.1); CHLORIDE 109 mmol/L (98-107); CREATININE 1.41 mg/dL (0.7-1.3)
[2019-12-05 20:35] LABS: TROPONIN I < 0.015 ng/mL (0.000-0.045)
--- NOTE | 2019-12-05 21:28 | NUR ---
CALL PLACED TO ASHWINI, OF PATIENT, TO COME PICK PATIENT UP. COMING FROM [place].
== END 2019-12-05 22:12 | disposition home or self-care (01) ==
LOC: ED 19:25
DX: S46.912A Strain of unspecified muscle, fascia and tendon at shoulder and upper arm level, left arm, initial encounter (principal); R07.89 Other chest pain; I10 Essential (primary) hypertension; R94.31 Abnormal electrocardiogram [ECG] [EKG]; Z90.89 Acquired absence of other organs; X58.XXXA Exposure to other specified factors, initial encounter; Y93.89 Activity, other specified; Y92.89 Other specified places as the place of occurrence of the external cause; Y99.8 Other external cause status
CPT/HCPCS: 36415; 71045; 80048; 82040; 84484; 85025; 93005; 99285

== ENCOUNTER 2020-01-31 10:56 | Outpatient (CLI) | payer MEDICARE, OTHER ==
[2020-01-31] MEDS ORDERED: TRAZ-175 PO (11:29)
[2020-01-31 12:02] LABS: PROTHROMBIN TIME 10.6 Seconds (9.6-11.5)
[2020-01-31 12:05] LABS: ALANINE AMINOTRANSFERASE 20 U/L (12-78); ALBUMIN 3.6 g/dL (3.4-5.0); ANION GAP 5 mmol/L (5-15); CALCIUM 9.7 mg/dL (8.5-10.1); CHLORIDE 108 mmol/L (98-107); CREATININE 1.57 mg/dL (0.7-1.3)
[2020-01-31 12:07] LABS: ALKALINE PHOSPHATASE 89 U/L (45-117); BILIRUBIN,TOTAL 0.4 mg/dL (0.2-1.0); TOTAL PROTEIN 7.8 g/dL (6.4-8.2)
[2020-01-31 12:14] LABS: BASOPHILS # (AUTO) 0.02 x10^3/uL (0-0.1); BASOPHILS % (AUTO) 0 % (0-1); EOSINOPHILS # (AUTO) 0.24 x10^3/uL (0-0.4); EOSINOPHILS % (AUTO) 5 % (1-7); LYMPHOCYTES % (AUTO) 32 % (22-44); MD NO; MEAN CORPUSCULAR HEMOGLOBIN 30.8 pg (27.5-34.5); MEAN CORPUSCULAR HGB CONC 33.4 g/dL (33.2-36.2); MEAN CORPUSCULAR VOLUME 92.3 fL (81-97); MEAN PLATELET VOLUME 8.1 fL (7.4-10.4); MONOCYTES # (AUTO) 0.33 x10^3/uL (0.2-0.8); MONOCYTES % (AUTO) 7 % (2-9); NEUTROPHILS # (AUTO) 2.56 x10^3/uL (1.8-6.8); NEUTROPHILS % (AUTO) 55 % (42-75); PLATELET COUNT 399 x10^3/uL (130-400); RED BLOOD COUNT 4.25 x10^6/uL (4.38-5.82); RED CELL DISTRIBUTION WIDTH 14.9 % (9.4-14.8)
== END 2020-01-31 23:59 | disposition home or self-care (01) ==
LOC: STAR 10:56
PROVIDERS: ATTEND Orthopaedic Surgery
DX: Z01.818 Encounter for other preprocedural examination (principal); M25.561 Pain in right knee; M17.11 Unilateral primary osteoarthritis, right knee; I45.19 Other right bundle-branch block
CPT/HCPCS: 36415; 80053; 83036; 85025; 85610; 85730; 87081; 93005

== ENCOUNTER 2020-02-06 11:13 | Observation (INO) | payer MEDICARE, OTHER ==
[~2020-02-06] VITALS: Ht 193 cm; Wt 129.0 kg
[2020-02-06] MEDS: TAMSULOSIN 0.4 MG CAP.ER.24H PO SCH (09:00)
[2020-02-06] MEDS: LOSARTAN 100 MG TAB PO SCH (09:00)
[2020-02-06] MEDS: DOCUSATE 100 MG CAPSULE PO SCH ×2 (09:00→21:00)
[2020-02-06] MEDS: PANTOPRAZOLE 40MG TABLET PO SCH ×2 (09:00→21:44)
[2020-02-06] MEDS: DULOXETINE 30 MG CAPSULE.DR PO SCH (10:30)
[~2020-02-06 11:13] MED LIST changes: +BISACODYL 10 MG SUPP PR PRN; +DIPHENHYDRAMINE 50 MG CAPSULE PO PRN; +EPINEPHRINE 1 MG/ML, 1ML ONE; +FENTANYL PF 250 MCG/5ML ONE; +HYDROcodone/APAP 5/325 TABLET PO PRN; +HYDROmorphone 1 MG/ML, 1ML INJ IV PRN; +KETOROLAC 60 MG/2 ML ONE; +MAGNESIUM HYDROXIDE 8%, 30ML UDC PO PRN; +MIDAZOLAM 1 MG/ML, 2ML ONE; +ONDANSETRON 2MG/ML, 2ML IV PRN; +ONDANSETRON 4 MG TABLET PO PRN; +ROPIvacaine/PF 0.2%, 20 ML ONE; +SENNA/DOCUSATE TABLET PO PRN; +SODIUM CHLORIDE 0.9% 50 ML ONE; +TRANEXAMIC ACID 100 MG/ML, 10ML ONE; +TRAZ-175 PO; +VANCOMYCIN 1,000 MG ONE; +ZOLPIDEM 5MG TABLET PO PRN
[2020-02-06] MEDS ORDERED: LACTATED RINGERS 1,000 ML IV SCH (11:49)
[2020-02-06] MEDS ORDERED: VANCOMYCIN PER PHARMACY MC STA (11:53)
[2020-02-06 11:57] VITALS: BP 104/65
[2020-02-06] MEDS ORDERED: GABAPENTIN 300 MG CAPSULE PO ONE (12:00)
[2020-02-06] MEDS ORDERED: ACETAMINOPHEN 500 MG TABLET PO ONE (12:00)
[2020-02-06] MEDS ORDERED: CHLORHEXIDINE 15 ML UDC MM ONE (12:00)
[2020-02-06] MEDS ORDERED: ACETAMINOPHEN 500 MG TABLET ONE (12:03)
[2020-02-06] MEDS ORDERED: CHLORHEXIDINE 15 ML UDC ONE (12:04)
[2020-02-06] MEDS: GABAPENTIN 300 MG CAPSULE PO SCH ×3 (12:19→21:44)
[2020-02-06] MEDS ORDERED: ROCURONIUM 10 MG/ML,10ML ONE (12:25)
[2020-02-06] MEDS ORDERED: VANCOMYCIN 1,000 MG ONE (12:25)
[2020-02-06] MEDS ORDERED: VANCOMYCIN 1,900 MG in SODIUM CHLORIDE 0.9% 250 ML IV ONE (12:30)
[2020-02-06] MEDS ORDERED: DEXAMETHASONE 4 MG/ML, 1ML ONE ×2 (12:35)
[2020-02-06] MEDS ORDERED: EPHEDRINE 50 MG/ML, 1ML ONE (12:38)
[2020-02-06] MEDS ORDERED: CEFAZOLIN 1,000 MG ONE (12:44)
[2020-02-06] MEDS ORDERED: LIDOCAINE-MPF 2% ,5ML ONE (12:52)
[2020-02-06] MEDS ORDERED: PROPOFOL 10 MG/ML, 20ML ONE (12:52)
[2020-02-06] MEDS ORDERED: SUCCINYLCHOLINE 20 MG/ML, 10ML ONE (12:52)
[2020-02-06] MEDS ORDERED: ROPIvacaine/PF 0.5%, 30 ML ONE (12:52)
[2020-02-06] MEDS ORDERED: FENTANYL PF 100 MCG/2ML IV PRN (13:30)
[2020-02-06] MEDS ORDERED: OXYcodone 5 MG/5 ML ORAL.SOL UDC PO PRN (13:30)
[2020-02-06] MEDS ORDERED: hydrALAzine 20 MG/ML, 1ML IV PRN (13:30)
[2020-02-06] MEDS ORDERED: PROMETHAZINE 25 MG/ML, 1ML IVPush PRN (13:30)
[2020-02-06] MEDS ORDERED: ONDANSETRON 2MG/ML, 2ML IVPush PRN (13:30)
[2020-02-06] MEDS ORDERED: LABETALOL 5MG/ML, 20ML IV PRN (13:30)
[2020-02-06] MEDS ORDERED: ONDANSETRON 2MG/ML, 2ML ONE (13:31)
[2020-02-06] MEDS ORDERED: HYDROmorphone 1 MG/ML, 1ML INJ ONE ×3 (14:08→14:34)
[2020-02-06] MEDS ORDERED: OXYcodone 5 MG/5 ML ORAL.SOL UDC ONE (14:08)
[2020-02-06] MEDS ORDERED: DIAZEPAM 5 MG/ML, 2ML ONE (14:08)
[2020-02-06] MEDS: HYDROmorphone 1 MG/ML, 1ML INJ IVPush PRN ×6 (14:15→15:16)
[2020-02-06] MEDS: DIAZEPAM 5 MG/ML, 2ML IVPush PRN ×2 (14:23→14:40)
[2020-02-06] MEDS ORDERED: METHOCARBAMOL 1,000 MG in DEXTROSE 5% 100 ML IV PRN (14:30)
[2020-02-06] MEDS ORDERED: hydrALAzine 20 MG/ML, 1ML ONE (15:02)
[2020-02-06] MEDS: NS + 20MEQ KCL 1,000 ML IV SCH (18:42)
[2020-02-06] MEDS: CEFAZOLIN PMX 2GM/50ML 50 ML IVPB SCH (18:42)
[2020-02-06] MEDS: ASPIRIN 81 MG TABLET EC PO SCH (18:42)
[2020-02-06 19:28] VITALS: BP 99/64
[2020-02-06] MEDS: OXYcodone IR 5MG TABLET PO PRN (19:48)
[2020-02-06] MEDS: ACETAMINOPHEN 650 MG/20.3 ML UDC PO PRN (19:48)
[2020-02-06] MEDS ORDERED: TRAZODONE 100MG TABLET PO SCH (21:00)
[2020-02-07] VITALS (7 sets, daily range): BP systolic 85–120; BP diastolic 47–73
[2020-02-07] MEDS: ACETAMINOPHEN 650 MG/20.3 ML UDC PO PRN ×3 (00:05→12:02)
[2020-02-07] MEDS: OXYcodone IR 5MG TABLET PO PRN ×3 (00:06→09:57)
[2020-02-07] MEDS: NS + 20MEQ KCL 1,000 ML IV SCH (00:51)
[2020-02-07] MEDS: CEFAZOLIN PMX 2GM/50ML 50 ML IVPB SCH (02:40)
[2020-02-07] MEDS: LOSARTAN 100 MG TAB PO SCH (05:55)
[2020-02-07] MEDS ORDERED: LACTATED RINGERS 500 ML IVBOLUS ONE (06:00)
[2020-02-07] MEDS ORDERED: DEXAMETHASONE 4 MG/ML, 1ML IVPush SCH (06:00)
[2020-02-07] MEDS: ASPIRIN 81 MG TABLET EC PO SCH (06:08)
[2020-02-07] MEDS: GABAPENTIN 300 MG CAPSULE PO SCH ×2 (09:58→16:21)
[2020-02-07] MEDS: DOCUSATE 100 MG CAPSULE PO SCH (09:58)
[2020-02-07] MEDS: TAMSULOSIN 0.4 MG CAP.ER.24H PO SCH (09:58)
[2020-02-07] MEDS: DULOXETINE 30 MG CAPSULE.DR PO SCH (09:58)
[2020-02-07] MEDS: PANTOPRAZOLE 40MG TABLET PO SCH (09:58)
[2020-02-07] MEDS ORDERED: OXYC5CAP2 PO (11:38)
[2020-02-07] MEDS ORDERED: MELO7.5T5 PO (11:39)
[2020-02-07] MEDS ORDERED: TRAM50TA2 PO (11:39)
== END 2020-02-07 16:27 | disposition home or self-care (01) ==
LOC: OUT 11:13 → 4NE 15:55 → OUT 20:10 → 4NE 20:16
PROVIDERS: ADMIT Orthopaedic Surgery; ATTEND Orthopaedic Surgery
DX: M17.11 Unilateral primary osteoarthritis, right knee (principal); J45.909 Unspecified asthma, uncomplicated; I10 Essential (primary) hypertension; G47.33 Obstructive sleep apnea (adult) (pediatric); Z79.899 Other long term (current) drug therapy
CPT/HCPCS: 27447; 36415; 85014; 85018; 87635; 96365; 96366; 96375; 97110; 97116; 97161; 97166; 97530; C1713; C1776; G0378; J0171; J0330; J0360; J0690; J1100; J1170; J2250; J2405; J2704; J2795; J2800; J3010; J3360; J3370; J3480; J3490; J7120; J1885

== ENCOUNTER → 2020-07-03 | Outpatient (CLI) | payer MEDICARE, OTHER ==
[~2020-07-03] MED LIST changes: -BISACODYL 10 MG SUPP PR PRN; +CEPH-376 PO; -DIPHENHYDRAMINE 50 MG CAPSULE PO PRN; -EPINEPHRINE 1 MG/ML, 1ML ONE; -FENTANYL PF 250 MCG/5ML ONE; -HYDROcodone/APAP 5/325 TABLET PO PRN; -HYDROmorphone 1 MG/ML, 1ML INJ IV PRN; -KETOROLAC 60 MG/2 ML ONE; -MAGNESIUM HYDROXIDE 8%, 30ML UDC PO PRN; +MELO7.5T5 PO; -MIDAZOLAM 1 MG/ML, 2ML ONE; -ONDANSETRON 2MG/ML, 2ML IV PRN; -ONDANSETRON 4 MG TABLET PO PRN; +OXYC5CAP2 PO; -PANT40TA5 PO; +PANT40TA6 PO; -ROPIvacaine/PF 0.2%, 20 ML ONE; -SENNA/DOCUSATE TABLET PO PRN; -SODIUM CHLORIDE 0.9% 50 ML ONE; +TRAM50TA2 PO; -TRANEXAMIC ACID 100 MG/ML, 10ML ONE; -VANCOMYCIN 1,000 MG ONE; -ZOLPIDEM 5MG TABLET PO PRN
[2020-07-03 15:57] LABS: INTERNATIONAL NORMALIZED RATIO 1.08 (0.93-1.1); PROTHROMBIN TIME 11.4 Seconds (9.6-11.5)
[2020-07-03 16:01] LABS: BASOPHILS % (AUTO) 1 % (0-1); EOSINOPHILS % (AUTO) 3 % (1-7); LYMPHOCYTES % (AUTO) 37 % (22-44); MEAN CORPUSCULAR HEMOGLOBIN 31.1 pg (27.5-34.5); MEAN CORPUSCULAR HGB CONC 33.8 g/dL (33.2-36.2); MEAN PLATELET VOLUME 7.9 fL (7.4-10.4); MONOCYTES % (AUTO) 7 % (2-9); NEUTROPHILS % (AUTO) 53 % (42-75); PLATELET COUNT 280 x10^3/uL (130-400); RED BLOOD COUNT 4.19 x10^6/uL (4.38-5.82)
[2020-07-03 16:04] LABS: ALANINE AMINOTRANSFERASE 17 U/L (12-78); ALKALINE PHOSPHATASE 104 U/L (45-117); ANION GAP 6 mmol/L (5-15); BILIRUBIN,TOTAL 0.8 mg/dL (0.2-1.0); CALCIUM 9.6 mg/dL (8.5-10.1); CHLORIDE 107 mmol/L (98-107); CREATININE 1.17 mg/dL (0.7-1.3); TOTAL PROTEIN 7.7 g/dL (6.4-8.2)
[2020-07-03 16:06] LABS: MD NO
== END | disposition home or self-care (01) ==
LOC: STAR 14:16
PROVIDERS: ATTEND Orthopaedic Surgery
DX: Z01.818 Encounter for other preprocedural examination (principal); M17.12 Unilateral primary osteoarthritis, left knee; M25.562 Pain in left knee; I44.0 Atrioventricular block, first degree; Z79.01 Long term (current) use of anticoagulants
CPT/HCPCS: 36415; 80053; 83036; 85025; 85610; 85730; 87081; 93005

== ENCOUNTER 2020-07-16 07:24 | Day surgery (SDC) | payer MEDICARE, OTHER ==
[~2020-07-16] VITALS: Ht 193 cm; Wt 132.0 kg
[~2020-07-16 07:24] MED LIST changes: +ACETAMINOPHEN 650 MG/20.3 ML UDC PO PRN; +ALBUTEROL HFA 90 MCG/SPRAY INH PRN; +BISACODYL 10 MG SUPP PR PRN; +DIPHENHYDRAMINE 50 MG CAPSULE PO PRN; +EPINEPHRINE 1 MG/ML, 1ML ONE; +HYDROcodone/APAP 5/325 TABLET PO PRN; +HYDROmorphone 1 MG/ML, 1ML INJ IV PRN; +KETOROLAC 60 MG/2 ML ONE; +MAGNESIUM HYDROXIDE 8%, 30ML UDC PO PRN; +ONDANSETRON 2MG/ML, 2ML IV PRN; +ONDANSETRON 4 MG TABLET PO PRN; +OXYcodone IR 5MG TABLET PO PRN; +ROPIvacaine/PF 0.5%, 20 ML ONE; +ROPIvacaine/PF 0.5%, 30 ML ONE; +SENNA/DOCUSATE TABLET PO PRN; +SODIUM CHLORIDE 0.9% 50 ML ONE; +TRANEXAMIC ACID 100 MG/ML, 10ML ONE; +VANCOMYCIN 1,000 MG ONE; +ZOLPIDEM 5MG TABLET PO PRN
[2020-07-16] MEDS ORDERED: ACETAMINOPHEN 500 MG TABLET PO ONE (08:00)
[2020-07-16] MEDS ORDERED: CHLORHEXIDINE 15 ML UDC MM ONE ×2 (08:00→10:00)
[2020-07-16] MEDS ORDERED: VANCOMYCIN PER PHARMACY MC PRN (08:00)
[2020-07-16] MEDS ORDERED: GABAPENTIN 300 MG CAPSULE PO ONE (08:00)
[2020-07-16] MEDS ORDERED: LACTATED RINGERS 1,000 ML IV SCH ×2 (08:00→10:00)
[2020-07-16] MEDS ORDERED: LIDOCAINE-MPF 1%, 2ML INFIL ONE ×2 (08:00→10:00)
[2020-07-16] MEDS ORDERED: FENTANYL PF 250 MCG/5ML ONE ×2 (08:58→09:39)
[2020-07-16] MEDS ORDERED: TAMSULOSIN 0.4 MG CAP.ER.24H PO SCH (09:00)
[2020-07-16] MEDS ORDERED: GABAPENTIN 300 MG CAPSULE PO SCH (09:00)
[2020-07-16] MEDS ORDERED: VANCOMYCIN 2,400 MG in SODIUM CHLORIDE 0.9% 500 ML IV ONE (09:00)
[2020-07-16] MEDS ORDERED: DOCUSATE 100 MG CAPSULE PO SCH (09:00)
[2020-07-16] MEDS ORDERED: CEFAZOLIN 1,000 MG ONE (09:15)
[2020-07-16] MEDS ORDERED: ONDANSETRON 2MG/ML, 2ML ONE (09:15)
[2020-07-16] MEDS ORDERED: ROCURONIUM 10 MG/ML,10ML ONE (09:15)
[2020-07-16] MEDS ORDERED: DEXAMETHASONE 4 MG/ML, 1ML ONE (09:15)
[2020-07-16] MEDS ORDERED: NEOSTIGMINE 1 MG/ML, 10ML ONE (09:15)
[2020-07-16] MEDS ORDERED: GLYCOPYRROLATE 0.2MG/1ML, 5ML ONE (09:15)
[2020-07-16] MEDS ORDERED: PROPOFOL 10 MG/ML, 20ML ONE (09:15)
[2020-07-16] MEDS ORDERED: SUCCINYLCHOLINE 20 MG/ML, 10ML ONE (09:15)
[2020-07-16] MEDS ORDERED: SUFentanil 50 MCG/ML, 1ML ONE ×2 (09:44→10:18)
[2020-07-16] MEDS ORDERED: HALOPERIDOL 5 MG/ML IV PRN (10:30)
[2020-07-16] MEDS ORDERED: LORazepam 2 MG/ML, 1ML IVPush PRN (10:30)
[2020-07-16] MEDS ORDERED: ACETAMINOPHEN 325 MG TABLET PO PRN (10:30)
[2020-07-16] MEDS ORDERED: FENTANYL PF 100 MCG/2ML IV PRN (10:30)
[2020-07-16] MEDS ORDERED: hydrALAzine 20 MG/ML, 1ML IV PRN (10:30)
[2020-07-16] MEDS ORDERED: ONDANSETRON 2MG/ML, 2ML IVPush PRN (10:30)
[2020-07-16] MEDS ORDERED: MEPERIDINE/PF 25MG/0.5ML IVPush PRN (10:30)
[2020-07-16] MEDS ORDERED: METHOCARBAMOL 1,000 MG in DEXTROSE 5% 100 ML IV PRN (10:30)
[2020-07-16] MEDS ORDERED: EPHEDRINE 50 MG/ML, 1ML IVPush PRN (10:30)
[2020-07-16] MEDS ORDERED: OXYcodone 5 MG/5 ML ORAL.SOL UDC PO PRN (10:30)
[2020-07-16] MEDS ORDERED: EPHEDRINE 50 MG/ML, 1ML IM PRN (10:30)
[2020-07-16] MEDS ORDERED: LABETALOL 5MG/ML, 20ML ONE (10:51)
[2020-07-16] MEDS ORDERED: HYDROmorphone 2 MG/ML, 1ML ONE (10:51)
[2020-07-16] MEDS: LABETALOL 5MG/ML, 20ML IV PRN ×4 (10:54→12:13)
[2020-07-16] MEDS: HYDROmorphone 1 MG/ML, 1ML INJ IVPush PRN ×2 (10:59→11:18)
[2020-07-16] MEDS ORDERED: MEPERIDINE/PF 25MG/ML,1ML ONE (11:06)
[2020-07-16] MEDS ORDERED: OXYcodone 5 MG/5 ML ORAL.SOL UDC ONE (11:13)
[2020-07-16] MEDS ORDERED: ASPIRIN 81 MG TABLET EC PO SCH (18:00)
[2020-07-16] MEDS ORDERED: NS + 20MEQ KCL 1,000 ML IV SCH (19:18)
[2020-07-16] MEDS ORDERED: CEFAZOLIN PMX 2GM/50ML 50 ML IVPB SCH (19:30)
[2020-07-16] MEDS ORDERED: TRAZODONE 100MG TABLET PO SCH (21:00)
[2020-07-17] MEDS ORDERED: DEXAMETHASONE 4 MG/ML, 1ML IVPush SCH (06:00)
[2020-07-17] MEDS ORDERED: DULOXETINE 30 MG CAPSULE.DR PO SCH (09:00)
[2020-07-17] MEDS ORDERED: LOSARTAN 100 MG TAB PO SCH (09:00)
== END 2020-07-16 17:00 | disposition home or self-care (01) ==
LOC: OUT 07:24
PROVIDERS: ATTEND Orthopaedic Surgery
DX: M17.12 Unilateral primary osteoarthritis, left knee (principal); M25.762 Osteophyte, left knee; G89.18 Other acute postprocedural pain; J45.909 Unspecified asthma, uncomplicated; G47.33 Obstructive sleep apnea (adult) (pediatric); E66.9 Obesity, unspecified; Z20.828 Contact with and (suspected) exposure to other viral communicable diseases; Z79.1 Long term (current) use of non-steroidal anti-inflammatories (NSAID); Z79.899 Other long term (current) drug therapy; Z90.49 Acquired absence of other specified parts of digestive tract; Z96.651 Presence of right artificial knee joint; Z98.890 Other specified postprocedural states
CPT/HCPCS: 27447; 64447; 87635; 97162; C1713; C1776; J0171; J0330; J0690; J1100; J1170; J1885; J2175; J2405; J2704; J2710; J2795; J2800; J3010; J3370; J7040